=== PATIENT | male | born 1965 | race Caucasian/White ===

== ENCOUNTER → 2016-10-01 | Outpatient (CLI) | payer BC ==
[~2016-10-01] MED LIST: ALPR0.254 PO; ALPR1TAB2 PO; ASP81EC PO; ATOR10TA PO; FAMO40TA49 PO; LISI10TA6 PO; NITR0.4S29 SL; NOR10T PO; PRAS10TA6 PO
== END | disposition home or self-care (01) ==
LOC: Rad HDHVI 09:05
PROVIDERS: ATTEND Internal Medicine Cardiovascular Disease
DX: R05 Cough (principal)
CPT/HCPCS: 71020

== ENCOUNTER → 2017-01-11 | Outpatient (CLI) | payer BC ==
[2017-01-11 16:29] LABS: Urine Bilirubin Negative (Negative); Urine Blood Negative /uL (Negative); Urine Color PINK (Yellow); Urine Glucose 2+ mg/dL (Normal); Urine Ketone Negative (Negative); Urine Nitrite Negative (Negative); Urine Urobilinogen Normal (Negative)
[2017-01-11 16:48] LABS: Albumin 4.1 g/dL (3.4-5.0); BUN/Creatinine Ratio 17.4; Bilirubin, Direct 0.1 mg/dL (0-0.2); Bilirubin, Total 0.4 mg/dL (0.2-1.0); Calcium 8.7 mg/dL (8.5-10.1); Potassium 4.3 mmol/L (3.5-5.1); Total Protein 7.5 g/dL (6.4-8.2)
[2017-01-11 16:54] LABS: Basophils # (auto) 0 uL; Basophils % (auto) 0.7 % (0.0-2.0); Eosinophils # (auto) 0.3 uL; Eosinophils % (auto) 3.5 % (0.0-7.0); Hematocrit 45.2 % (41.0-53.0); Hemoglobin 15.4 g/dL (13.5-17.5); Lymphocytes % (auto) 27.8 % (10.0-50.0); Mean Corpuscular Hemoglobin 32.8 pg (28.0-32.0); Mean Corpuscular Volume 96.6 fL (80.0-100.0); Mean Platelet Volume 7.9 fL (6.9-10.8); Monocytes # (auto) 0.7 uL; Monocytes % (auto) 9.4 % (0.0-12.0); Neutrophils # (auto) 4.3 uL; Neutrophils % (auto) 58.6 % (37.0-80.0); Nucleated Red Blood Cells % 0.1 %; Platelet Count (auto) 232 10^3/uL (140-450); White Blood Cell 7.4 10^3/uL (4.4-10.8)
== END | disposition home or self-care (01) ==
LOC: LAB 14:35
PROVIDERS: ATTEND Internal Medicine Cardiovascular Disease
DX: I10 Essential (primary) hypertension (principal); E78.00 Pure hypercholesterolemia, unspecified; K74.1 Hepatic sclerosis; E11.9 Type 2 diabetes mellitus without complications; R97.20 Elevated prostate specific antigen [PSA]; R53.81 Other malaise; E03.9 Hypothyroidism, unspecified; D64.9 Anemia, unspecified; E55.9 Vitamin D deficiency, unspecified; N39.0 Urinary tract infection, site not specified
CPT/HCPCS: 36415; 80048; 80061; 80076; 81003; 82306; 82607; 83036; 84153; 84403; 84443; 85025

== ENCOUNTER → 2018-02-03 | Outpatient (CLI) | payer BC ==
[2018-02-03 16:17] LABS: Calcium 8.5 mg/dL (8.5-10.1); Potassium 3.9 mmol/L (3.5-5.1)
[2018-02-03 16:19] LABS: Basophils # (auto) 0.1 uL; Basophils % (auto) 0.9 % (0.0-2.0); Eosinophils # (auto) 0.2 uL; Eosinophils % (auto) 3.3 % (0.0-7.0); Hematocrit 45.1 % (41.0-53.0); Hemoglobin 15.3 g/dL (13.5-17.5); Lymphocytes % (auto) 30.4 % (10.0-50.0); Mean Corpuscular Hemoglobin 32.3 pg (28.0-32.0); Mean Corpuscular Hgb Conc. 33.9 g/dL (32.0-36.0); Mean Corpuscular Volume 95.2 fL (80.0-100.0); Monocytes # (auto) 0.7 uL; Monocytes % (auto) 10.6 % (0.0-12.0); Neutrophils # (auto) 3.7 uL; Neutrophils % (auto) 54.8 % (37.0-80.0); Nucleated Red Blood Cells % 0.2 %; Platelet Count (auto) 236 10^3/uL (140-450); Red Blood Cells 4.74 10^6/uL (4.5-5.90); Red Cell Distribution Width 12.5 % (11.8-14.3); White Blood Cell 6.7 10^3/uL (4.4-10.8)
[2018-02-03 16:24] LABS: BUN/Creatinine Ratio 14.3; Bilirubin, Total 0.5 mg/dL (0.2-1.0); Total Protein 7.3 g/dL (6.4-8.2)
[2018-02-03 16:55] LABS: Free T4 (Free Thyroxine) 0.83 ng/dL (0.89-1.76); Prostate Specific Antigen 0.27 ng/mL (0.0-4.0)
== END | disposition home or self-care (01) ==
LOC: LAB 14:48
PROVIDERS: ATTEND Internal Medicine Cardiovascular Disease
DX: Z00.01 Encounter for general adult medical examination with abnormal findings (principal); C61 Malignant neoplasm of prostate; E03.9 Hypothyroidism, unspecified; E11.9 Type 2 diabetes mellitus without complications; E55.9 Vitamin D deficiency, unspecified; E29.1 Testicular hypofunction; D51.9 Vitamin B12 deficiency anemia, unspecified
CPT/HCPCS: 36415; 80053; 80061; 82306; 82607; 83036; 84153; 84403; 84439; 84443; 85025

== ENCOUNTER → 2018-03-15 | Outpatient (CLI) | payer BC ==
[~2018-03-15] VITALS: Ht 177.8 cm; Wt 83.9 kg
== END | disposition home or self-care (01) ==
LOC: Rad HDHVI 14:14
PROVIDERS: ATTEND Internal Medicine Cardiovascular Disease
DX: I25.2 Old myocardial infarction (principal); E78.00 Pure hypercholesterolemia, unspecified; I20.0 Unstable angina; R06.02 Shortness of breath; Z95.5 Presence of coronary angioplasty implant and graft
CPT/HCPCS: 78452; 93017; 93306; 96374; A9500

== ENCOUNTER 2018-04-04 10:29 | Emergency (ER) | payer BC ==
[~2018-04-04] VITALS: Ht 177.8 cm; Wt 83.9 kg
[2018-04-04 12:37] VITALS: BP 146/96
[2018-04-04] MEDS ORDERED: cefTRIAXone 1GM/50ML D5W 50 ML IV ONE (13:45)
[2018-04-04] MEDS ORDERED: ONDANSETRON ODT 4 MG TAB PO ONE (13:45)
[2018-04-04] MEDS ORDERED: LIDOCAINE 1% HCL (LOCAL ANESTH.) INJ 20ML MDV IJ ONE (13:45)
[2018-04-04] MEDS ORDERED: ACETAMINOPHEN/CODEINE#3 (300/30mg) TAB PO ONE (13:45)
[2018-04-04] MEDS ORDERED: BACITRACIN TOP OINT 1 UD PKG TOP ONE (14:13)
[2018-04-04] MEDS ORDERED: cefTRIAXone SOD 1,000 MG VL ONE (14:14)
[2018-04-04] MEDS ORDERED: cefTRIAXone SOD 1,000 MG VL IM ONE (14:15)
== END 2018-04-04 14:24 | disposition home or self-care (01) ==
LOC: ER 10:29
DX: S61.210A Laceration without foreign body of right index finger without damage to nail, initial encounter (principal); I10 Essential (primary) hypertension; E78.5 Hyperlipidemia, unspecified; Z86.73 Personal history of transient ischemic attack (TIA), and cerebral infarction without residual deficits; Z98.61 Coronary angioplasty status; X58.XXXA Exposure to other specified factors, initial encounter; Y93.89 Activity, other specified; Y99.8 Other external cause status; Y92.89 Other specified places as the place of occurrence of the external cause
CPT/HCPCS: 12041; 73140; 96372; 99284; J0696; J2001; Q0162

== ENCOUNTER → 2018-04-12 | Outpatient (CLI) | payer BC ==
[~2018-04-12] MED LIST changes: +SILVER SULFADIAZINE 1 % TOPICAL CREAM 50GM TOP ONE; +SILVER SULFADIAZINE 1 % TOPICAL CREAM 50GM TOP SCH
[2018-04-12 10:30] VITALS: BP 144/88
--- NOTE | 2018-04-12 10:30 | NUR ---
CHF PT TO [facility] FOR MD [facility]IAG[facility] ORDERED WD CARE TO R FINGER SUTURE DEHISED WOUND.
[2018-04-12 11:25] VITALS: BP 140/78
--- NOTE | 2018-04-12 11:25 | NUR ---
CHF Wound Care Wound care provided per MD order. Patient tolerated well and verbalized dressing care instructions. Follow up in clinic as directed. See e-MAR for medications given during this visit. Discharge Instructions See e-MAR for any mediations given with this visit. Patient education given on disease process. Patient verbalized understanding. Previous labs reviewed. Patient discharged in stable condition with after care instructions and follow up appointment.
== END | disposition home or self-care (01) ==
LOC: CHF HDHVI 11:08
PROVIDERS: ATTEND Internal Medicine Cardiovascular Disease
DX: I10 Essential (primary) hypertension (principal); D51.9 Vitamin B12 deficiency anemia, unspecified; E78.5 Hyperlipidemia, unspecified
CPT/HCPCS: G0463